=== PATIENT | female | born 1975 | race Caucasian/White ===

== ENCOUNTER 2024-11-16 12:38 | Day surgery (SDC) | payer SELFPAY ==
--- NOTE | 2024-11-16 00:08 | HP ---
HISTORY AND PHYSICAL DATE OF SURGERY: 11/16/2024. HISTORY OF PRESENT ILLNESS: Eugenie Seaman is 49-year-old patient seen with a displaced right distal radius fracture. I discussed open reduction and internal fixation. I reviewed the procedure, risks, complications, benefits, recovery, the patient was agreeable. Consent was obtained. PAST MEDICAL HISTORY: Noncontributory. SURGICAL HISTORY: Ovarian cyst. DAILY MEDICATIONS: 1. Meloxicam. 2. Progesterone. ALLERGIES: None reported. SOCIAL HISTORY: She denies current tobacco use. PHYSICAL EVALUATION OF THE RIGHT WRIST: She has a long-arm cast in place. She is able to move her fingers without pain. Her distal neurovascular exam is intact. IMAGING STUDIES: Radiographs of the right wrist revealed a displaced right distal radial fracture with dorsal comminution and dorsal collapse. IMPRESSION: Displaced right distal radius fracture. PLAN: Open reduction and internal fixation, right distal radius. MMODL / IJN: [id number] /
[2024-11-16] MEDS: IV FLUID CONTINUATION 1,000 ML IV ONE ×2 (13:37→17:28)
[2024-11-16] MEDS: LACTATED RINGERS 1,000 ML BAG IV STA (13:54)
[2024-11-16] MEDS: MIDAZOLAM 2 MG/2 ML VIAL IVP ONE (14:36)
[2024-11-16] MEDS: fentaNYL (PF) 50 MCG/ML 2 ML AMP IVP ONE (14:36)
[2024-11-16] MEDS: DEXAMETHASONE SOD PHOSPHATE 4 MG/ML 1 ML VIAL IVP STA (14:50)
[2024-11-16] MEDS: ONDANSETRON 4 MG/2 ML VIAL IVP STA (14:51)
[2024-11-16] MEDS: FAMOTIDINE 20 MG/2 ML VIAL IV STA (14:51)
[2024-11-16] MEDS ORDERED: PROPOFOL 10 MG/ML 20 ML VIAL IV ONE (14:56)
[2024-11-16] MEDS ORDERED: SUCCINYLCHOLINE CHLORIDE 200 MG/10 ML VIAL IV ONE (14:56)
[2024-11-16] MEDS ORDERED: LIDOCAINE 1% INJ 10MG/ML (20 ML MDV) ONE (14:56)
[2024-11-16] MEDS ORDERED: ROPIVACAINE 5 MG/ML 30 ML VIAL ONE (14:56)
[2024-11-16] MEDS ORDERED: diphenhydrAMINE 50 MG/ML 1 ML VIAL ONE (14:56)
[2024-11-16] MEDS ORDERED: ceFAZolin 1 GM/50 ML BAG (PMX) ONE (14:56)
[2024-11-16] MEDS ORDERED: GLYCOPYRROLATE 0.2 MG/ML 2 ML VIAL ONE (14:56)
[2024-11-16] MEDS ORDERED: PHENYLEPHRINE 10 MG/ML VIAL ONE (14:56)
[2024-11-16] MEDS ORDERED: DEXAMETHASONE SOD PHOSPHATE 10 MG/ML 1 ML VIAL ONE (14:56)
[2024-11-16] MEDS ORDERED: MIDAZOLAM 2 MG/2 ML VIAL ONE (14:56)
[2024-11-16] MEDS: SODIUM CHLORIDE 0.9% 100 ML with ceFAZolin 2,000 MG IV ONE (14:59)
--- NOTE | 2024-11-16 15:01 | P.ANPRN ---
Procedure Note - Anesthesia - Nerve Block Performed Right Supraclavicular Single Time Out Performed: Yes Date of Procedure: 11/16/24 Procedure Start Time: 14:36 Procedure Stop Time: 14:41 Location of Patient: PreOp Indication: Acute Post-Operative Pain, Analgesia, Requested by Surgeon Sedation Type: Sedate with meaningful contact maintained Preparation: Sterile Prep Position: Sitting Catheter: None Needle Types: Pajunk Needle Gauge: 21 Ultrasound used to visualize needle placement: Yes Ultrasound used to observe medication spread: Yes Injectate: 0.5% Ropivacaine (see comment for volume) (Ropiv 20ml+Decadron 4mg) Blood Aspirated: No Pain Paresthesia on Injection Noted: No Resistance on Injection: Normal Image Stored and Saved: Yes Events: Uneventful and Well Tolerated
[2024-11-16] MEDS: BUPIVACAINE (PF) 0.25% 30 ML VIAL SQ ONE (15:34)
--- NOTE | 2024-11-16 16:32 | XR ---
EXAMINATION TYPE: XR wrist complete RT, FL guidance operating room DATE OF EXAM: 11/16/2024 CLINICAL HISTORY: Right wrist fracture. TECHNIQUE: Fluoroscopy. Intraoperative 3 views right wrist. COMPARISON: Outside right wrist x-ray one day earlier.. FINDINGS: Fluoroscopic guidance was provided during open reduction internal fixation procedure perfo rmed by Dr. Napier. A total of 42.1 seconds of fluoroscopic time was utilized during the procedur e and 2 spot images was acquired. Total dose area product (DAP) in uGy*m?, mGy*cm? (or similar: 0.16 15. Images acquired show placement of a volar fixating plate through slightly displaced fracture of the d istal radial metaphysis. IMPRESSION: As Above. [facility], , 11/16/2024 4:29 PM
--- NOTE | 2024-11-16 16:35 | P.OP ---
Date of Procedure: 11/16/24 Preoperative Diagnosis: Displaced right distal radius fracture Postoperative Diagnosis: Displaced right distal radius fracture Procedure(s) Performed: Open reduction and internal fixation right distal radius fracture Implants: Synthes 2.4 volar distal radial plate 2 hole with 4-1.8 mm buttress pins and 22.7 proximal cortical screws Anesthesia: GETA, regional (Interscalene block) Surgeon: Jhon Napier Algebra Teacher #1: Дмитрий Silva Estimated Blood Loss (ml): 12 Pathology: none sent Condition: stable Disposition: PACU Indications for Procedure: 49-year-old patient seen with a displaced right distal radius fracture. I recommended open reduction internal fixation. I reviewed the procedure, risks, complications and recovery, patient was agreeable. Consent was obtained. Operative Findings: See description of procedure Description of Procedure: Patient was taken to the operative suite. She had received a preoperative interscalene block to provide postoperative analgesia. She underwent a general anesthetic by the department anesthesia. She was given preoperative IV antibiotics. Well-padded tourniquet placed proximal right upper extremity. Right upper extremity was now prepped and draped in the normal sterile fashion. The extremity is elevated and tourniquet insufflated to 250. I now made a standard volar incision based over the distal radius sharply through skin measuring approximately 5 cm. I dissected down to the subcutaneous soft tissues and then down to the tendons. I now carefully dissected down to the distal radius and placed blunt wheat [place] retractors in place. I used a periosteal elevator to expose the distal radius. There was an obvious distal radius fracture with displacement. I chose a Synthes 2.4 volar right distal radial plate and secured it while holding the fracture reduced. I now drilled a proximal cortical screw and inserted a appropriate length cortical screw locking down the plate. With the assistance of Kendall BARRETT I held the fracture aligned well C-arm was brought into the operative field confirming adequate positioning of our plate. The fracture was well reduced. I now made appropriate drill holes to the distal end of the plate and introduced appropriate length buttress pins. I introduced a total of 4 buttress pins with good fixation noted. C-arm was brought back into the operative field noting adequate positioning of the hardware and good reduction of our fracture. We now placed 1 more proximal 2.7 mm cortical screw and then reviewed reviewed the entire cost again under AP and lateral operative imaging. We had good positioning of our hardware with good reduction and positioning of the fracture. Spot films were obtained intraoperative to document this. The C-arm was now pulled back. The wound was irrigated. The subcutaneous soft tissues were repaired with Vicryl suture. The skin was repaired with a running subcuticular closure augmented with skin glue. Sterile dressings were applied. Tourniquet was released with immediate capillary refill noted. A well-padded volar splint was applied. The patient was now awakened, transferred to a bed and recovery in stable and satisfactory condition. Kendall BARRETT assisted in all aspects of the procedure.
[2024-11-16 16:53] VITALS: TEMP 97
[2024-11-16 17:15] VITALS: RESP 16
[2024-11-16] MEDS: BENZOCAINE/MENTHOL LOZENG 1 EACH LOZENGE MUCOUS MEM PRN (17:33)
[2024-11-16 18:18] VITALS: BP 116/56; PULSE 68
== END 2024-11-16 18:35 | disposition home or self-care (01) ==
LOC: OR 12:38
PROVIDERS: ATTEND Orthopaedic Surgery
DX: S52.551A Other extraarticular fracture of lower end of right radius, initial encounter for closed fracture (principal); S52.501A Unspecified fracture of the lower end of right radius, initial encounter for closed fracture; G89.18 Other acute postprocedural pain; Z79.1 Long term (current) use of non-steroidal anti-inflammatories (NSAID); Z79.3 Long term (current) use of hormonal contraceptives; X58.XXXA Exposure to other specified factors, initial encounter
CPT/HCPCS: 25607; 64415; 73110; C1713; J2250; J0330; J1200; J1100 ×2; J2405; J0690 ×2; J2003; J3010; J3490; J2795; J2704; J2371; J0665; J1596